=== PATIENT | male | born 1955 | race Caucasian/White ===

== ENCOUNTER 2018-07-29 18:37 | Emergency (ER) | payer OTHER ==
[~2018-07-29] VITALS: Ht 190.5 cm; Wt 83.9 kg
[~2018-07-29 18:37] MED LIST: ADULT LOW DOSE81 MG PO; ASPIRIN325 PO; CARISOPRODOL 3350 MG PO; CIPROFLOXACIN500 M1 PO; DOXYCYCLINE 10100 MG PO; FLEXERIL PO; HYDROCODONE-AP1 EAC6 PO; IBUPROFEN 600600 M1 PO; IBUPROFEN 800800 M1 PO; IBUPROFEN 800800 MG PO; MEDROL DOSPAK21 TA1 PO; MOBIC7.5 MG PO; MULTAQ 400 MG400 MG PO; NO HOME MEDS; NORCO 5-325 TA1 EACH PO; NORCO 7.5-3251 EACH PO; PENICILLIN VK500 MG PO; PERCOCET 5-3251 EACH PO; PREDNISONE 20 M20 MG PO; PRINIVIL20 MG PO; PROVENTIL HFA6.7 G1 INH; SILVADENE20 GM TP; TOPROL XL25 MG PO; ULTRAM 50MG TAB50 MG PO; XARELTO20 MG PO
[2018-07-29 19:22] LABS: ABSOLUTE NEUTROPHILS 3.9 thou/uL (1.4-8.2); BASOPHILS 0.8 % (0.0-2.0); EOSINOPHILS 1.6 % (0.0-3.0); HEMATOCRIT 42.5 % (42.0-52.0); HEMOGLOBIN 14.6 gm/dL (14.0-18.0); LYMPHOCYTES 34.3 % (24.0-44.0); MCH 32.2 pg (26.0-34.0); MCHC 34.3 g/dL (28.0-37.0); PLATELET COUNT 213 thou/uL (150-400); POLYS 51.3 % (36.0-66.0); RBC 4.52 mil/uL (4.50-6.00); RDW 14.3 % (10.5-14.5); WBC 7.6 thou/uL (4.0-11.0)
[2018-07-29 19:27] LABS: CALCIUM 9.1 mg/dL (8.5-10.1); CREATININE 1.1 mg/dL (0.7-1.3); POTASSIUM 4.8 mmol/L (3.5-5.1)
[2018-07-29 19:31] LABS: PROTIME 10.9 Seconds (9.3-11.4)
[2018-07-29 19:34] LABS: ALBUMIN 3.6 g/dL (3.4-5.0); TOTAL BILIRUBIN 0.5 mg/dL (<0.1-1.0); TOTAL PROTEIN 7.9 g/dL (6.4-8.2)
[2018-07-29] MEDS ORDERED: DOXYCYCLINE 10100 MG PO (19:46)
[2018-07-29] MEDS ORDERED: NORCO 10-325 T1 EACH PO (19:46)
[2018-07-29 20:35] VITALS: BP 187/80
== END 2018-07-29 20:35 | disposition home or self-care (01) ==
LOC: ER 18:37
PROVIDERS: Physician Assistant
DX: S20.211A Contusion of right front wall of thorax, initial encounter (principal); R05 Cough; J44.9 Chronic obstructive pulmonary disease, unspecified; I48.91 Unspecified atrial fibrillation; I10 Essential (primary) hypertension; F17.210 Nicotine dependence, cigarettes, uncomplicated; Z88.8 Allergy status to other drugs, medicaments and biological substances; W19.XXXA Unspecified fall, initial encounter; Y93.89 Activity, other specified; Y92.89 Other specified places as the place of occurrence of the external cause; Y99.8 Other external cause status

== ENCOUNTER 2020-04-01 17:48 | Emergency (ER) | payer OTHER ==
[~2020-04-01] VITALS: Ht 190.5 cm; Wt 72.6 kg
[~2020-04-01 17:48] MED LIST changes: +NORCO 10-325 T1 EACH PO
[2020-04-01] MEDS ORDERED: NEURONTIN100 MG PO (18:45)
[2020-04-01] MEDS ORDERED: ASA81BEC PO (19:25)
[2020-04-01 19:26] VITALS: BP 102/59
== END 2020-04-01 19:28 | disposition home or self-care (01) ==
LOC: ER 17:48
DX: G58.9 Mononeuropathy, unspecified (principal); J44.9 Chronic obstructive pulmonary disease, unspecified; I48.91 Unspecified atrial fibrillation; I10 Essential (primary) hypertension; F17.210 Nicotine dependence, cigarettes, uncomplicated; Z79.82 Long term (current) use of aspirin; Z79.899 Other long term (current) drug therapy; Z88.8 Allergy status to other drugs, medicaments and biological substances

== ENCOUNTER 2020-06-17 13:23 | Emergency (ER) | payer OTHER ==
[~2020-06-17] VITALS: Ht 180.3 cm; Wt 79.4 kg
[~2020-06-17 13:23] MED LIST changes: +ASA81BEC PO; +NEURONTIN100 MG PO
[2020-06-17 15:45] VITALS: BP 148/72
[2020-06-17] MEDS ORDERED: MOBIC7.5 MG PO (15:45)
[2020-06-17] MEDS ORDERED: ULTRAM 50MG TAB50 MG PO (15:45)
== END 2020-06-17 16:22 | disposition home or self-care (01) ==
LOC: ER 13:23
DX: M25.561 Pain in right knee (principal); I10 Essential (primary) hypertension; I48.91 Unspecified atrial fibrillation; J44.9 Chronic obstructive pulmonary disease, unspecified; F17.210 Nicotine dependence, cigarettes, uncomplicated; Z79.82 Long term (current) use of aspirin; Z88.8 Allergy status to other drugs, medicaments and biological substances